=== PATIENT | female | born 1960 | race Caucasian/White ===

== ENCOUNTER 2019-02-28 22:15 | Emergency (ER) | payer OTHER ==
--- OUTSIDE RECORDS SUMMARY | 2019-02-28 22:17 | XMS REPORT | Clinical Summary ---
:1960 Author Organization [facility] Address [address] [place] [address] Care Team Providers Name Role Phone Remington Abarca Primary Care Provider Allergies No Known Allergies Medications Medication Sig Dispensed Refills Start Date End Date Status multivitamin per tablet Take 1 tablet by 0 Active mouth daily. Active Problems No known active problems Social History Tobacco Use Types Packs/Day Years Used Date Former Smoker Smokeless Tobacco: Never Used Comments: occasional smoker several years ago Alcohol Use Drinks/Week oz/Week Comments Yes once a month/social Sex Assigned at Date Recorded Not on file Job Start Date Occupation Industry Not on file Not on file Not on file Travel History Travel Start Travel End No recent travel history available. Last Filed Vital Signs Not on file Plan of Treatment Not on file Results Not on fileafter 02/27/2018 Insurance Payer Benefit Plan / Group Subscriber ID Type Phone Address [employer] - [employer] C[employer] CIG[employer] HMO/POS/OPEN ACCESS xxxxxxxxxxx HMO/POS
[2019-02-28 23:27] LABS: Urine Blood NEGATIVE (NEG); Urine Glucose NEGATIVE (NEG); Urine Protein NEGATIVE (NEG); Urine Specific Gravity 1.015 (1.005-1.030); Urine pH 8.5 (5.0-7.0)
[2019-03-01 00:07] LABS: Absolute Lymphocytes (CBC) 1.9 K/uL (0.7-4.9); Absolute Monocytes 0.7 K/uL (0.1-1.3); Absolute Neutrophil 5.6 K/uL (1.8-8.0); Basophils % 1.1 % (0-1.3); Eosinophils % 1.7 % (0-4.4); Hematocrit 37.7 % (36.0-45.0); Lymphocytes % 22.5 % (15.3-44.8); MPV 7.5 fL (7.6-11.3)
[2019-03-01 00:16] LABS: ALT/SGPT 26 U/L (12-78); AST/SGOT 26 U/L (15-37); Albumin 3.6 g/dL (3.4-5.0); Alkaline Phosphatase 78 U/L (45-117); BUN Blood Urea Nitrogen 13 mg/dL (7-18); Bicarbonate 28 mmol/L (21-32); Bilirubin Direct < 0.1 mg/dL (0-0.2); Bilirubin Total 0.3 mg/dL (0.2-1.0); Glucose Level 101 mg/dL (74-106); Lipase 130 U/L (73-393); Protein, Total 8.6 g/dL (6.4-8.2); Sodium Level 141 mmol/L (136-145)
[2019-03-01] MEDS ORDERED: NA CHLORIDE 0.9% 1,000 ML ONE (00:27)
--- NOTE | 2019-03-01 01:37 | EDPHYS ---
Physician Documentation [facility] Name: Sophia Mcfadden Age: 58 yrs Sex: Female : 1960 Arrival Date: 02/28/2019 Time: 22:16 Bed 14 Private MD: ED Physician Mert Candelaria HPI: 02/28 22:36 This 58 yrs old Female presents to ER via Ambulatory with complaints of Fever.jmm 22:36 The patient presents to the emergency department with vomiting. Onset: The jmm symptoms/episode began/occurred gradually, 2 week(s) ago. Possible causes: sick contacts, by family. The symptoms are aggravated by nothing. The symptoms are alleviated by nothing. This is a 58 year old female with no known chronic medical conditions presents to the ED with complaints of right flank pain, fatigue. Patient states 2 weeks prior vomited once. Patient vomited again Monday and was evaluated by her pcp. Patient states her cbc revealed elevated wbc count. patient prescribed cipro and flagyl. Patient states on her way home from picking her her rx, she developed increased fatigue. Patient denies shortness of breath or chest pain. . Historical: - Allergies: 22:22 No Known Allergies; ed1 - Home Meds: 22:22 None [Active]; ed1 - PMHx: 22:22 None; ed1 - PSHx: 22:22 None; ed1 - Immunization history:: Adult Immunizations up to date. - Social history:: Smoking status: Patient/guardian denies using tobacco. - Ebola Screening: : Patient negative for fever greater than or equal to 101.5 degrees Fahrenheit, and additional compatible Ebola Virus Disease symptoms Patient denies exposure to infectious person Patient denies travel to an Ebola-affected area in the 21 days before illness onset No symptoms or risks identified at this time. ROS: 22:36 Cardiovascular: Negative for chest pain, palpitations, and edema, Respiratory: Negative jmm for shortness of breath, cough, wheezing, and pleuritic chest pain. 22:36 Constitutional: Positive for body aches, fatigue. 22:36 Abdomen/GI: Positive for nausea and vomiting, Negative for diarrhea. 22:36 Back: Positive for flank pain, on the right. 22:36 All other systems are negative. Exam: 22:36 Constitutional: This is a well developed, well nourished patient who is awake, alert, jmm and in no acute distress. Head/Face: atraumatic. Eyes: EOMI, no conjunctival erythema appreciated ENT: Moist Mucus Membranes Neck: Trachea midline, Supple Chest/axilla: Normal chest wall appearance and motion. Cardiovascular: Regular rate and rhythm. No edema appreciated 22:36 Skin: General appearance color normal MS/ Extremity: Moves all extremities, no obvious deformities appreciated, no edema noted to the lower extremities Neuro: Awake and alert, normal gait Psych: Behavior is normal, Mood is normal, Patient is cooperative and pleasant 22:36 ECG was reviewed by the Attending Physician. 22:36 Respiratory: the patient does not display signs of respiratory distress, Respirations: normal, Breath sounds: are clear throughout. 22:36 Abdomen/GI: Inspection: abdomen appears normal, Bowel sounds: normal, Palpation: abdomen is soft and non-tender. 22:36 Back: CVA tenderness, that is mild, is noted on the right. 22:36 Musculoskeletal/extremity: ROM: intact in all extremities. Vital Signs: 22:22 BP 132 / 79; Pulse 83; Resp 17; Temp 97.5(O); Pulse Ox 98% on R/A; Weight 50.8 kg; ed1 Height 5 ft. 2 in. (157.48 cm); Pain 2/10; 03/01 01:03 BP 121 / 73; Pulse 70; Resp 16; Pulse Ox 100% on R/A; lp1 02:08 BP 107 / 66; Pulse 67; Resp 16; Temp 98(O); Pulse Ox 100% on R/A; Pain 0/10; lp1 02/28 22:22 Body Mass Index 20.48 (50.80 kg, 157.48 cm) ed1 MDM: 02/28 22:36 Patient medically screened. [facility] 03/01 01:35 Data reviewed: vital signs, nurses notes. Counseling: I had a detailed discussion with [facility] the patient and/or guardian regarding: the historical points, exam findings, and any diagnostic results supporting the discharge/admit diagnosis, lab results, radiology results, the need for outpatient follow up, to return to the emergency department if symptoms worsen or persist or if there are any questions or concerns that arise at home. ED course: Patient states she has been asymptomatic in the ED. VS normal. CBC unremarkable. Patient has no complaints of chest pain or shortness of breath. patient is advised to follow up with pcp and otherwise given strict return precautions. patient understood and agrees with the plan of care. . 02/28 23:17 Order name: Urine Dipstick--Ancillary (enter results); Complete Time: 23:33 02/28 23:24 Order name: Basic Metabolic Panel; Complete Time: 00:18 [facility] 02/28 23:24 Order name: CBC with Diff; Complete Time: 00:08 [facility] 02/28 23:24 Order name: Creatinine for Radiology; Complete Time: 00:18 [facility] 02/28 23:24 Order name: Hepatic Function; Complete Time: 00:18 [facility] 02/28 23:24 Order name: Lipase; Complete Time: 00:18 [facility] 02/28 23:14 Order name: Urine Dipstick-Ancillary (obtain specimen); Complete Time: 23:14 lp1 02/28 23:24 Order name: IV Saline Lock; Complete Time: 23:52 [facility] 02/28 23:24 Order name: Labs collected and sent; Complete Time: 23:52 [facility] 02/28 23:24 Order name: CT Abd/Pelvis - IV Contrast Only [facility] 03/01 01:21 Order name: EKG - Nurse/Tech; Complete Time: 01:34 [facility] 03/01 01:38 Order name: Troponin (emerg Dept Use Only); Complete Time: 02:20 jmm EC/06 22:36 Rate is 58 beats/min. Rhythm is irregular, Sinus bradycardia. QRS [place] is Normal. [place] jmm interval is normal. QRS interval is normal. QT interval is normal. No Q waves. T waves are Normal. No ST changes noted. Administered Medications: 03/01 00:12 Drug: NS 0.9% 1000 ml Route: IV; Rate: 1 bolus; Site: left antecubital; lp1 01:30 Follow up: IV Status: Completed infusion; IV Intake: 1000ml lp1 Disposition: 03/01/19 02:20 Discharged to Home. Impression: Vomiting, Malaise and fatigue. - Condition is Stable. - Discharge Instructions: Nausea and Vomiting, Adult, Fatigue. - Medication Reconciliation Form, Thank You Letter, Antibiotic Education, Prescription Opioid Use form. - Follow up: Private Physician; When: 1 - 2 days; Reason: Recheck today's complaints, Continuance of care, Re-evaluation by your physician. Addendum: 03/05/2019 16:34 Co-signature as Attending Physician, Mert Candelaria MD I agree with the assessment and t w4 plan of care. Signatures: Dispatcher [employer] EDMS Obie Matos PA PA jmm Fany Tafoya RN RN ed1 Brenda Blevins RN RN lp1 Mert Candelaria MD MD tw4 Corrections: (The following items were deleted from the chart) 03/01 01:43 01:37 03/01/2019 01:37 Discharged to Home. Impression: Malaise and fatigue; Vomiting; jmm Flank Pain. Condition is Stable. Forms are Medication Reconciliation Form, Thank You Letter, Antibiotic Education, Prescription Opioid Use. Follow up: Private Physician; When: 1 - 2 days; Reason: Recheck today's complaints, Continuance of care, Re-evaluation by your physician. [facility] 02:29 02:20 03/01/2019 02:20 Discharged to Home. Impression: Vomiting; Malaise and fatigue. lp1 Condition is Stable. Forms are Medication Reconciliation Form, Thank You Letter, Antibiotic Education, Prescription Opioid Use. Follow up: Private Physician; When: 1 - 2 days; Reason: Recheck today's complaints, Continuance of care, Re-evaluation by your physician. [facility]
--- NOTE | 2019-03-01 01:37 | ER ---
Nurse's Notes [facility] Name: Sophia Mcfadden Age: 58 yrs Sex: Female : 1960 Arrival Date: 02/28/2019 Time: 22:16 Bed 14 Private MD: Diagnosis: Vomiting;Malaise and fatigue Presentation: 02/28 22:20 Presenting complaint: Patient states: I got dehydrated last week and they called EMS. I ed1 saw my doctor and they said I have a bacterial infection and they prescribed me Cipro and Flagyl. I have not taken it yet. I was driving home from [facility] and I felt really weak so I turned around and came here. Transition of care: patient was not received from another setting of care. Onset of symptoms was February 28, 2019. Risk Assessment: Do you want to hurt yourself or someone else? Patient reports no desire to harm self or others. Initial Sepsis Screen: Does the patient meet any 2 criteria? No. Patient's initial sepsis screen is negative. Does the patient have a suspected source of infection? No. Patient's initial sepsis screen is negative. Care prior to arrival: None. 22:20 Method Of Arrival: Ambulatory ed1 22:20 Acuity: BLESSING 3 ed1 Triage Assessment: 22:22 General: Appears in no apparent distress. Behavior is calm, cooperative. Pain: ed1 Complains of pain in low back area Pain currently is 2 out of 10 on a pain scale. Cardiovascular: Denies chest pain. Respiratory: Airway is patent Respiratory effort is even, unlabored, Respiratory pattern is regular, symmetrical. Historical: - Allergies: 22:22 No Known Allergies; ed1 - Home Meds: 22:22 None [Active]; ed1 - PMHx: 22:22 None; ed1 - PSHx: 22:22 None; ed1 - Immunization history:: Adult Immunizations up to date. - Social history:: Smoking status: Patient/guardian denies using tobacco. - Ebola Screening: : Patient negative for fever greater than or equal to 101.5 degrees Fahrenheit, and additional compatible Ebola Virus Disease symptoms Patient denies exposure to infectious person Patient denies travel to an Ebola-affected area in the 21 days before illness onset No symptoms or risks identified at this time. Screenin:34 Abuse screen: Denies threats or abuse. Denies injuries from another. Nutritional lp1 screening: No deficits noted. Tuberculosis screening: No symptoms or risk factors identified. Fall Risk None identified. Assessment: 23:06 General: Appears in no apparent distress. Behavior is calm, cooperative, appropriate lp1 for age. Pain: Complains of pain in right low back. Neuro: Level of Consciousness is awake, alert, obeys commands, Oriented to person, place, time, situation, Moves all extremities. Full function Gait is steady, Pupils are PERRLA, Intact Reports dizziness. Cardiovascular: Patient's skin is warm and dry. Respiratory: Respiratory effort is even, unlabored. GI: Reports nausea, vomiting, a couple days ago. : Denies burning with urination. EENT: No signs and/or symptoms were reported regarding the EENT system. Derm: Skin is pink, warm \T\ dry. Musculoskeletal: No deficits noted. 03/01 00:00 Reassessment: Patient appears in no apparent distress at this time. No changes from lp1 previously documented assessment. 01:03 Reassessment: Patient appears in no apparent distress at this time. Patient is alert, lp1 oriented x 3, equal unlabored respirations, skin warm/dry/pink. Aware of waiting for CT results Patient denies pain at this time. 02:09 Reassessment: Patient is alert, oriented x 3, equal unlabored respirations, skin lp1 warm/dry/pink. Patient denies pain at this time. Patient states feeling better. Patient states symptoms have improved. Vital Signs: 02/28 22:22 BP 132 / 79; Pulse 83; Resp 17; Temp 97.5(O); Pulse Ox 98% on R/A; Weight 50.8 kg; ed1 Height 5 ft. 2 in. (157.48 cm); Pain 2/10; 07 01:03 BP 121 / 73; Pulse 70; Resp 16; Pulse Ox 100% on R/A; lp1 02:08 BP 107 / 66; Pulse 67; Resp 16; Temp 98(O); Pulse Ox 100% on R/A; Pain 0/10; lp1 02/28 22:22 Body Mass Index 20.48 (50.80 kg, 157.48 cm) ed1 ED Course: 02/28 22:16 Patient arrived in ED. ag3 22:22 Triage completed. ed1 22:22 Arm band placed on right wrist. ed1 22:25 Obie Matos PA is PHCP. [facility] 22:25 Mert Candelaria MD is Attending Physician. [facility] 22:33 Brenda Blevins, RN is Primary Nurse. lp1 22:43 Inserted saline lock: 22 gauge in left antecubital area, using aseptic technique. Blood mw2 collected. 23:07 Patient has correct armband on for positive identification. Placed in gown. lp1 23:51 No provider procedures requiring assistance completed. lp1 06/07 00:00 Radiology exam delayed due to lab results not completed at this time. (BUN/Creatinine). 2 00:58 CT Abd/Pelvis - IV Contrast Only In Process Unspecified. EDMS 02:29 IV discontinued, No redness/swelling at site. Pressure dressing applied. lp1 Administered Medications: 00:12 Drug: NS 0.9% 1000 ml Route: IV; Rate: 1 bolus; Site: left antecubital; lp1 01:30 Follow up: IV Status: Completed infusion; IV Intake: 1000ml lp1 Intake: 01:30 IV: 1000ml; Total: 1000ml. lp1 Outcome: 01:37 Discharge ordered by MD. [facility] 02:20 Discharge ordered by MD. [facility] 02:29 Discharged to home ambulatory, with significant other. lp1 02:29 Condition: good 02:29 Discharge instructions given to patient, Instructed on discharge instructions, follow up and referral plans. Demonstrated understanding of instructions, follow-up care. 02:29 Patient left the ED. lp1 Signatures: Dispatcher [employer] EDMS Obie Matos PA PA Fany Butler RN RN ed1 Brenda Blevins, RN RN lp1 Libra Duff 2 Myesha Garcia 2 Cyndie Taylor 3
--- NOTE | 2019-03-01 11:26 | RAD REPORT ---
EXAM DESCRIPTION: Abdomen Pelvis W Contrast CLINICAL HISTORY: Flank pain, vomiting COMPARISON: None. TECHNIQUE: CT ABDOMEN PELVIS WITH IV CONTRAST on 02/28/2019 11:24 PM CDT This exam was performed according to our departmental dose-optimization program, which includes autom ated exposure control, adjustment of the mA and/or kV according to patient size and/or use of iterati ve reconstruction technique. FINDINGS: Lower lungs are clear. Abdomen: The liver is normal in appearance. There is no biliary dilatation. Gallbladder is normal in appearance. The pancreas and spleen are normal in appearance. The adrenal glands and kidneys are unre markable. Abdominal aorta is normal in course and caliber without aneurysm. There is no free air. There is no r etroperitoneal adenopathy. Pelvis: There is large amount of stool throughout the colon. Urinary bladder is unremarkable. There i s no free fluid. The uterus is retroverted but normal in size. Appendix is normal. Skeleton: There are no acute osseous findings. No suspicious bony lesions. IMPRESSION: No acute inflammatory process. No renal or ureteral calculi. Electronically signed by: Jason French MD 03/01/2019 1:07 AM CDT Due to temporary technical issues with the PACS/Fluency reporting system, reports are being signed by the in house radiologist as a courtesy to ensure prompt reporting. The interpreting radiologist is f titily responsible for the content of the report.
--- NOTE | 2019-03-02 09:07 | EKG ---
Test Date: 2019-03-01 Test Time: 01:29:51 Radio Television Technical Director: JONA MEASUREMENT RESULTS: Intervals: Rate: 58 UT: 140 QRSD: 80 QT: 432 QTc: 424 [place]: P: 80 UT: 140 QRS: 77 T: 62 INTERPRETIVE STATEMENTS: Sinus bradycardia Otherwise normal ECG No previous ECG available for comparison Electronically Signed On 03-02-19 09:01:35 CDT by Vivek Diamond
== END 2019-03-01 02:29 | disposition home or self-care (01) ==
LOC: ER 22:15
DX: R11.10 Vomiting, unspecified (principal); R53.83 Other fatigue; R53.81 Other malaise
CPT/HCPCS: 36415; 74177; 80048; 80076; 81003; 83690; 84484; 85025; 93005; 96360; 99284; J7030; Q9967

== ENCOUNTER 2023-04-23 20:47 | Emergency (ER) | payer OTHER ==
--- OUTSIDE RECORDS SUMMARY | 2023-04-23 20:51 | XMS REPORT | Continuity of Care Document ---
:1960 Author Organization [facility] t Address [address] [place] [address] Care Team Providers Name Role Phone iMliemanuel Remington Amadeo Primary Care Physician Melita Winkler Attending Clinician Unavailable Melita Winkler Admitting Clinician Unavailable Payers Payer Name Policy Type Policy Number Effective Date Expiration Date S ource Problems This patient has no known problems. Allergies, Adverse Reactions, Alerts This patient has no known allergies or adverse reactions. Social History Social Habit Start Date Stop Date Quantity Comments Source History of Current [facility] 2017-09-06 2017-09-06 [facility] drinker of [facility] 00:[facility] 00:00:00 alcohol (finding) [facility] [place] Tobacco Comment 2017-09-01 2017-09-01 occasional sm[facility]:00 several years ago [facility] Alcohol Comment 2017-09-01 2017-09-[address] [facility] Tobacco use and 2017-09-01 2017-09-01 Smokeless tobacco [facility] exposure [facility]00[facility]00 00[facility]00[facility]00 [facility] Sex Assigned At [address] [facility]00 [facility] Smoking Status Start Date Stop Date Source Ex-smoker 2017-09-01 00:00:00 2017-09-01 00:00:00 [facility] Medications Ordered Filled Start Stop Current Ordering Indication Dosage Frequency Signature Comments Components Source Medication Medication Date Date Medication? Clinician (SIG) Name Name multivanupam 2016-09 Yes 1{tbl} QD Take [address] [facility] 2[facility] tablet 14:32: mouth [facility] 56 daily. Center Procedures This patient has no known procedures. Encounters Start End Encounter Admission Attending Care Care Encounter Source Date/Time Date/Time Type Type Clinicians Facility Department ID 2023-02-28 2023-02-28 Outpatient OLVIN Freitas [id number] [facility] 09:45:00 09:45:[address] [place] [address] Results This patient has no known results.
[2023-04-23 21:14] LABS: Absolute Lymphocytes (CBC) 2.1 K/uL (0.7-4.9); Hematocrit 36.5 % (36.0-45.0); Lymphocytes % 33.6 % (15.3-44.8); MPV 7.2 fL (7.6-11.3); RBC Red Blood Cell Count 3.76 M/uL (3.86-4.86)
[2023-04-23 21:18] LABS: Protime INR 0.99
--- NOTE | 2023-04-23 21:20 | RAD REPORT ---
EXAM DESCRIPTION: CT - Ct Stroke Brain Wo Cont - 04/23/2023 9:09 pm CLINICAL HISTORY: STROKE ALERT COMPARISON: No comparisons TECHNIQUE: All CT scans are performed using dose optimization technique as appropriate and may inclu de automated exposure control or mA/KV adjustment according to patient size. FINDINGS: No intracranial hemorrhage, hydrocephalus or extra-axial fluid collection.No areas of brai n edema or evidence of midline shift. The paranasal sinuses and mastoids are clear. The calvarium is intact. IMPRESSION: No acute intracranial abnormality. Discussed with Dr. Lamb by Dr. Browning at [id number] on 04/23/23
[2023-04-23 21:33] LABS: Albumin 3.8 g/dL (3.4-5.0); Bilirubin Direct 0.1 mg/dL (0-0.2); Bilirubin Indirect, Calculated 0.3 mg/dL (0.2-0.8); Bilirubin Total 0.4 mg/dL (0.2-1.0); Magnesium 2.1 mg/dL (1.6-2.4); Potassium 3.7 mEq/L (3.5-5.1); Protein, Total 7.6 g/dL (6.4-8.2); Troponin High Sensitivity 4.8 pg/mL (<58.9)
[2023-04-23] MEDS ORDERED: NA CHLORIDE 0.9% 500 ML ONE (21:43)
[2023-04-23] MEDS ORDERED: MECLIZINE HCL 12.5 MG TAB ONE (21:43)
--- NOTE | 2023-04-23 22:02 | RAD REPORT ---
EXAM DESCRIPTION: RAD - Chest Single View - 04/23/2023 9:49 pm CLINICAL HISTORY: CHEST PAIN COMPARISON: No comparisons FINDINGS: Lines: None. Lungs: No evidence of edema or pneumonia. Pleural: No significant pleural effusions or pneumothorax. Cardiac: The heart size is within normal limits. Mediastinum: Within normal limits. Bones: No acute fractures. Other: None IMPRESSION: No acute cardiopulmonary disease.
[2023-04-23 22:15] LABS: C-Reactive Protein < 2.90 mg/L (<3.00)
[2023-04-23] MEDS ORDERED: NA CHLORIDE 0.9% 1,000 ML ONE (23:14)
--- NOTE | 2023-04-24 00:25 | ER ---
Nurse's Notes [facility] Name: Sophia Mcfadden Age: 62 yrs Sex: Female : 1960 Arrival Date: 04/23/2023 Time: 20:47 Bed 8 Private MD: Diagnosis: Benign paroxysmal vertigo, bilateral;Dizziness and giddiness Presentation: 04/23 21:01 Chief complaint: Patient states: Around 7 pm I started having problems with my eye vc1 sight, it looked like I was looking through a kaleidoscope. I feel really lightheaded and weak. I started having tingling to my right hand and pressure to the right side of my head. I feel really jittery. Coronavirus screen: Vaccine status: Patient reports being unvaccinated. Client denies travel out of the [place] in the last 14 days. At this time, the client does not indicate any symptoms associated with coronavirus-19. Ebola Screen: Patient negative for fever greater than or equal to 101.5 degrees Fahrenheit, and additional compatible Ebola Virus Disease symptoms Patient denies exposure to infectious person. Patient denies travel to an Ebola-affected area in the 21 days before illness onset. No symptoms or risks identified at this time. No acute neurological deficit is noted. Risk Assessment: Do you want to hurt yourself or someone else? Patient reports no desire to harm self or others. Onset of symptoms was April 23, 2023 at 19:00. 21:01 Method Of Arrival: Wheelchair vc1 21:01 Acuity: BLESSING 2 vc1 Triage Assessment: 21:11 The onset of the patients symptoms was April 23, 2023 at 19:00. General: Appears in no vc1 apparent distress. uncomfortable, Behavior is cooperative, anxious. Pain: Complains of pain in right bahai Pain does not radiate. EENT: No deficits noted. No signs and/or symptoms were reported regarding the EENT system. Neuro: Level of Consciousness is awake, alert, obeys commands, Oriented to person, place, time, situation, Appropriate for age Reports weakness "Like I was looking through a kaleidoscope.". Cardiovascular: No deficits noted. Respiratory: Airway is patent Respiratory effort is even, unlabored, Respiratory pattern is regular, symmetrical. GI: No deficits noted. No signs and/or symptoms were reported involving the gastrointestinal system. : No deficits noted. No signs and/or symptoms were reported regarding the genitourinary system. Derm: No deficits noted. No signs and/or symptoms reported regarding the dermatologic system. Musculoskeletal: No deficits noted. No signs and/or symptoms reported regarding the musculoskeletal system. Stroke Activation: Physician: Stroke Attending; Name: tian; Notified At: 21:01; Arrived At: 21:01 Physician: Chief Stroke Resident; Name: ; Notified At: 21:01; Arrived At: Physician: Stroke Resident; Name: ; Notified At: 21:; Arrived At: Physician: ED Attending; Name: ; Notified At: 21:; Arrived At: Physician: ED Resident; Name: ; Notified At: 21:; Arrived At: Historical: - Allergies: 21:09 No Known Allergies; vc1 - Home Meds: 21:09 None [Active]; vc1 - PMHx: 21:09 None; vc1 - PSHx: 21:09 None; vc1 - Immunization history:: Client reports having NOT received the Covid vaccine. - Social history:: Smoking status: Patient denies any tobacco usage or history of. - Family history:: not pertinent. Screenin:15 [facility] ED Fall Risk Assessment (Adult). Abuse screen: Denies threats or abuse. vc1 Nutritional screening: No deficits noted. Tuberculosis screening: No symptoms or risk factors identified. Assessment: 21:31 Reassessment: Per Dr. Lamb, we will not be administering TNKase. cm10 21:39 VAN Scoring: Arm Drift: Patients demonstrates NO arm weakness. Patient is VAN Negative. cm10 Visual Disturbance: No visual disturbance noted. Aphasia: No aphasia noted. Neglect: No neglect noted. Jenae Swallow Protocol Brief Cognitive Screen What is your name? Normal, Where are you right now? Normal, What year is it? Normal. Oral Mechanism Examination Facial Symmetry: Normal, Motion: Normal, Lip Closure: Normal, Oral Mechanism Result: Normal. 3 oz Water Swallow Challenge: Pt able to drink all water without stopping, coughing, choking or throat clearing: Yes Result: PASS. TNKase (Tenecteplase) Screening:. General: Appears in no apparent distress. comfortable, Behavior is calm, cooperative. Pain: Complains of pain in face and right bahai. Neuro: No deficits noted. Level of Consciousness is awake, alert, obeys commands, Oriented to person, place, time, situation, Investment Fund Manager are equal bilaterally Moves all extremities. Gait is steady, Speech is normal, Facial symmetry appears normal, Pupils are PERRLA, Intact. Cardiovascular: No deficits noted. Capillary refill < 3 seconds Rhythm is regular. Respiratory: No deficits noted. Airway is patent Respiratory effort is even, unlabored, Respiratory pattern is regular, symmetrical. EENT: Reports ringing in right ear and left ear. Derm: No deficits noted. Skin is intact, Skin is pink, warm \\T\\ dry. 22:17 Reassessment: Patient and/or family updated on plan of care and expected duration. Pain cm10 level reassessed. Patient is alert, oriented x 3, equal unlabored respirations, skin warm/dry/pink. Patient states feeling better. Patient states symptoms have improved. 04/24 00:33 Reassessment: Patient states feeling better. Patient states symptoms have improved. kd3 General: Appears in no apparent distress. Behavior is calm, cooperative. Neuro: Level of Consciousness is awake, alert, obeys commands, Oriented to person, place, time, situation. Vital Signs: 04/23 21:01 Weight 51.26 kg; Height 5 ft. 2 in. ; Pain 4/10; vc1 21:19 BP 128 / 86; Pulse 86; Resp 16; Pulse Ox 100% on R/A; cm10 21:42 BP 119 / 79; Pulse 66; Resp 18; Pulse Ox 99% on R/A; kd3 22:54 BP 112 / 65; Pulse 61; Resp 19; Pulse Ox 98% on R/A; kd3 04/24 00:32 BP 103 / 72; Pulse 71; Resp 16; Pulse Ox 100% on R/A; kd3 04/23 21:01 Body Mass Index 20.67 (51.26 kg, 157.48 cm) vc1 04/23 21:01 Pain Scale: Adult vc1 [place] Coma Score: 04/23 21:36 Eye Response: spontaneous(4). Motor Response: obeys commands(6). Verbal Response: sp4 oriented(5). Total: 15. NIH Stroke Scale Scores: 21:16 NIHSS Score: 0 cm10 21:36 NIHSS Score: 0 sp4 ED Course: 20:49 Patient arrived in ED. rg4 20:55 Alice Pandey, DAYDAY is Primary Nurse. cm10 20:56 Sander Lamb MD is Attending Physician. sp4 21:00 Inserted saline lock: 20 gauge in right antecubital area, using aseptic technique. cm10 Blood collected. 21:09 Ct Stroke Brain Wo Cont In Process Unspecified. EDMS 21:09 Triage completed. vc1 21:11 Arm band placed on right wrist. vc1 21:51 XRAY Chest (1 view) In Process Unspecified. EDMS 22:17 Patient has correct armband on for positive identification. Bed in low position. Call cm10 light in reach. Side rails up X2. Provided Education on: N/A. Administered Medications: 21:44 Drug: Meclizine PO 25 mg Route: PO; cm10 22:16 Follow up: Response: No adverse reaction cm10 04/24 00:33 Follow up: Response: No adverse reaction kd3 04/23 21:44 Drug: NS 0.9% IV 500 ml Route: IV; Rate: bolus; Site: right antecubital; cm10 23:08 Follow up: Response: No adverse reaction; IV Status: Completed infusion; IV Intake: cm10 500ml 04/24 00:34 Follow up: IV Status: Completed infusion; IV Intake: 500ml kd3 04/23 23:09 Drug: NS 0.9% IV 1000 ml Route: IV; Rate: 125 ml/hr; Site: right antecubital; cm10 04/24 00:34 Follow up: IV Status: Completed infusion; IV Intake: 100ml kd3 Medication: 04/23 21:19 VIS not applicable for this client. cm10 Intake: 23:08 IV: 500ml; Total: 500ml. cm10 04/24 00:34 IV: 500ml; Total: 1000ml. kd3 00:34 IV: 100ml; Total: 1100ml. kd3 Outcome: 00:24 Discharge ordered by . sp4 00:34 Patient left the ED. kd3 NIH Stroke Scale - NIH Stroke Score Date: 04/23/2023 Time: 21:16 Total Score = 0 10. Dysarthria (speech clarity - read or repeat words) - 0(Normal) 11. Extinction and Inattention (visual/tactile/auditory/spatial/personal) - 0(No abnormality) 1a. Level of Consciousness (LOC) - 0(Alert) 1b. Level of Consciousness (LOC) (Month \\T\\ Age) - 0(Both) 1c. LOC Commands (Open \\T\\ Closes Eyes/Production Painter) - 0(Both) 2. Best Gaze (Lateral Gaze Paresis) - 0(Normal) 3. Visual Field Loss - 0(No visual loss) 4. Facial Palsy - 0(Normal) 5a. Left Arm: Motor (10-second hold) - 0(No drift) 5b. Right Arm: Motor (10-second hold) - 0(No drift) 6a. Left Leg: Motor (5-second hold - always test supine) - 0(No drift) 6b. Right Leg: Motor (5-second hold - always test supine) - 0(No drift) 7. Limb Ataxia (finger/nose \\T\\ heel/terrazas - test with eyes open) - 0(Absent) 8. Sensory Loss (pinprick arms/legs/face) - 0(Normal) 9. Best Language: Aphasia (description/naming/reading) - 0(No aphasia) Initials: cm10 NIH Stroke Scale - NIH Stroke Score Date: 04/23/2023 Time: 21:36 Total Score = 0 10. Dysarthria (speech clarity - read or repeat words) - 0(Normal) 11. Extinction and Inattention (visual/tactile/auditory/spatial/personal) - 0(No abnormality) 1a. Level of Consciousness (LOC) - 0(Alert) 1b. Level of Consciousness (LOC) (Month \\T\\ Age) - 0(Both) 1c. LOC Commands (Open \\T\\ Closes Eyes/Production Painter) - 0(Both) 2. Best Gaze (Lateral Gaze Paresis) - 0(Normal) 3. Visual Field Loss - 0(No visual loss) 4. Facial Palsy - 0(Normal) 5a. Left Arm: Motor (10-second hold) - 0(No drift) 5b. Right Arm: Motor (10-second hold) - 0(No drift) 6a. Left Leg: Motor (5-second hold - always test supine) - 0(No drift) 6b. Right Leg: Motor (5-second hold - always test supine) - 0(No drift) 7. Limb Ataxia (finger/nose \\T\\ heel/terrazas - test with eyes open) - 0(Absent) 8. Sensory Loss (pinprick arms/legs/face) - 0(Normal) 9. Best Language: Aphasia (description/naming/reading) - 0(No aphasia) Initials: sp4 Signatures: Dispatcher [employer] EDIvy Castillo rg4 Jennifer Monae RN RN kd3 Lisy Carvalho RN RN 1 Sander Lamb MD MD sp4 Alice Pandey RN RN cm10 Corrections: (The following items were deleted from the chart) 04/23 22:17 22:16 Inserted saline lock: 20 gauge in left antecubital area, using aseptic cm10 technique. Blood collected. cm10 22:17 22:09 Initial lab(s) drawn, by nh, sent to lab. First set of blood cultures cm10 drawn by me, cm10
--- NOTE | 2023-04-24 00:25 | EDPHYS ---
Physician Documentation [facility] Name: Sophia Mcfadden Age: 62 yrs Sex: Female : 1960 Arrival Date: 04/23/2023 Time: 20:47 Bed 8 Private MD: ED Physician Sander Lamb HPI: 04/23 21:36 This 62 yrs old Female presents to ER via Wheelchair with complaints of sp4 Weakness, Dizziness, Vision Problem, Numbness Of Arm. 21:36 Very pleasant 62-year-old female with no significant past medical history presents with sp4 a cute onset of dizziness at about 7:45 PM associated with some sensation of vertigo numbness and vision disturbance. . 04/24 01:49 Patient denied lateralizing weakness, denies speech deficit, denied visual field sp4 deficits. Historical: - Allergies: 04/23 21:09 No Known Allergies; vc1 - Home Meds: 21:09 None [Active]; vc1 - PMHx: 21:09 None; vc1 - PSHx: 21:09 None; vc1 - Immunization history:: Client reports having NOT received the Covid vaccine. - Social history:: Smoking status: Patient denies any tobacco usage or history of. - Family history:: not pertinent. ROS: 04/24 01:49 Constitutional: Negative for fever, chills, and weight loss, Eyes: Negative for injury, sp4 pain, redness, and discharge, positive for vision disturbance ENT: Negative for injury, pain, and discharge, Neck: Negative for injury, pain, and swelling, Cardiovascular: Negative for chest pain, palpitations, and edema, Respiratory: Negative for shortness of breath, cough, wheezing, and pleuritic chest pain, Abdomen/GI: Negative for abdominal pain, nausea, vomiting, diarrhea, and constipation, Back: Negative for injury and pain, : Negative for injury, bleeding, discharge, and swelling, MS/Extremity: Negative for injury and deformity, Skin: Negative for injury, rash, and discoloration, Neuro: Negative for headache, weakness, numbness, tingling, and seizure, positive for dizziness, positive for bilateral arm numbness, positive for vertigo Psych: Negative for depression, anxiety, Allergy/Immunology: Negative for hives, rash, and allergies Endocrine: Negative for neck swelling, polydipsia, polyuria, polyphagia, and weight changes Hematologic/Lymphatic: Negative for swollen nodes, abnormal bleeding, and unusual bruising Exam: 01:49 Constitutional: This is a well developed, well nourished patient who is awake, alert, sp4 and in no acute distress. Head/Face: Normocephalic, atraumatic. Eyes: Pupils equal round and reactive to light, extra-ocular motions intact. Lids and lashes normal. Conjunctiva and sclera are not injected. Cornea within normal limits. Periorbital areas with no swelling, redness, or edema. ENT: Nares patent. No nasal discharge, no septal abnormalities noted. Tympanic membranes are normal and external auditory canals are clear. Oropharynx with no redness, swelling, or masses, exudates, or evidence of obstruction, uvula midline. Mucous membranes moist. Neck: Trachea midline, no thyromegaly or masses palpated, and no cervical lymphadenopathy. Supple, full range of motion without nuchal rigidity, or vertebral point tenderness. Chest/axilla: Normal chest wall appearance and motion. Nontender with no deformity. No lesions are appreciated. Cardiovascular: Regular rate and rhythm with a normal S1 and S2. No gallops, murmurs, or rubs. Normal PMI, no JVD. No pulse deficits. Respiratory: Lungs have equal breath sounds bilaterally, clear to auscultation and percussion. No rales, rhonchi or wheezes noted. No increased work of breathing, no retractions or nasal flaring. Abdomen/GI: Soft, non-tender, with normal bowel sounds. No distension or tympany. No guarding or rebound. No evidence of tenderness throughout. Back: No spinal tenderness. No costovertebral tenderness. Skin: Warm, dry with normal turgor. Normal color with no rashes, no lesions, and no evidence of cellulitis. MS/ Extremity: Pulses equal, no cyanosis. Neurovascular intact. Full, normal range of motion. Neuro: Awake and alert, GCS 15, oriented to person, place, time, and situation. Cranial nerves II-XII grossly intact. Motor strength 5/5 in all extremities. Sensory grossly intact. Psych: Awake, alert, with orientation to person, place and time. Behavior, mood, and affect are within normal limits :49 ECG was reviewed by the Attending Physician. EKG time 2058. Normal sinus rhythm at sp4 rate of 71, no ST elevation or depression, no ectopy, normal intervals, normal EKG. Vital Signs: 04/23 21:01 Weight 51.26 kg; Height 5 ft. 2 in. ; Pain 4/10; vc1 21:19 BP 128 / 86; Pulse 86; Resp 16; Pulse Ox 100% on R/A; cm10 21:42 BP 119 / 79; Pulse 66; Resp 18; Pulse Ox 99% on R/A; kd3 22:54 BP 112 / 65; Pulse 61; Resp 19; Pulse Ox 98% on R/A; kd3 04/24 00:32 BP 103 / 72; Pulse 71; Resp 16; Pulse Ox 100% on R/A; kd3 04/23 21:01 Body Mass Index 20.67 (51.26 kg, 157.48 cm) vc1 04/23 21:01 Pain Scale: Adult vc1 NIH Stroke Scale Scores: 04/23 21:16 NIHSS Score: 0 cm10 21:36 NIHSS Score: 0 sp4 [place] Coma Score: 21:36 Eye Response: spontaneous(4). Motor Response: obeys commands(6). Verbal Response: sp4 oriented(5). Total: 15. MDM: 21:03 Patient medically screened. sp4 04/24 01:49 Data reviewed: nurses notes, lab test result(s), cardiac enzymes, troponin i, CBC, sp4 electrolytes, hepatic panel, EKG, radiologic studies, CT scan, plain films. Consideration of Admission/Observation Escalation of care including admission/observation considered. ED course: Patient neurologic exam does not suggest CVA or TIA. Patient's presentation is more consistent with vertigo and anxiety associated with vertigo. Exam is completely normal today and work-up is also normal. CT angio is not indicated, TNK not indicated, after period of observation patient felt completely better after some IV fluids and meclizine. Patient is stable for discharge home at this time with as needed meclizine and advised to practice bedrest for 24 hours.. 04/23 20:57 Order name: Basic Metabolic Panel; Complete Time: 00:14 sp4 04/23 20:57 Order name: CBC with Diff; Complete Time: 00:14 sp4 04/23 20:57 Order name: LFT's; Complete Time: 00:14 sp4 04/23 20:57 Order name: Magnesium; Complete Time: 00:14 sp4 04/23 20:57 Order name: NT PRO-BNP; Complete Time: 00:14 sp4 04/23 20:57 Order name: PT-INR; Complete Time: 00:14 sp4 04/23 20:57 Order name: Troponin HS; Complete Time: 00:14 sp4 04/23 21:24 Order name: Glucose, Ancillary Testing; Complete Time: 00:14 EDMS 04/23 21:36 Order name: TSH; Complete Time: 00:14 sp4 04/23 21:36 Order name: T4 Free; Complete Time: 00:14 sp4 04/23 21:36 Order name: CRP; Complete Time: 00:14 sp4 04/23 20:57 Order name: XRAY Chest (1 view); Complete Time: 00:14 sp4 04/23 21:09 Order name: Ct Stroke Brain Wo Cont; Complete Time: 00:14 EDMS 04/23 20:57 Order name: EKG; Complete Time: 20:57 sp4 04/23 20:57 Order name: Cardiac monitoring; Complete Time: 21:15 sp4 04/23 20:57 Order name: EKG - Nurse/Tech; Complete Time: 21:15 sp4 04/23 20:57 Order name: IV Saline Lock; Complete Time: 21:24 sp4 04/23 20:57 Order name: Labs collected and sent; Complete Time: 21:24 sp4 04/23 20:57 Order name: O2 Per Protocol; Complete Time: 21:24 sp4 04/23 20:57 Order name: O2 Sat Monitoring; Complete Time: 21:24 sp4 EC:49 Rate is 71 beats/min. Rhythm is regular, Normal Sinus Rhythm. QRS [place] is Normal. [place] sp4 interval is normal. QRS interval is normal. QT interval is normal. T waves are Normal. No ST changes noted. Clinical impression: Normal ECG. Interpreted by me. Administered Medications: 04/23 21:44 Drug: Meclizine PO 25 mg Route: PO; cm10 22:16 Follow up: Response: No adverse reaction cm10 04/24 00:33 Follow up: Response: No adverse reaction kd3 04/23 21:44 Drug: NS 0.9% IV 500 ml Route: IV; Rate: bolus; Site: right antecubital; cm10 23:08 Follow up: Response: No adverse reaction; IV Status: Completed infusion; IV Intake: cm10 500ml 04/24 00:34 Follow up: IV Status: Completed infusion; IV Intake: 500ml kd3 04/23 23:09 Drug: NS 0.9% IV 1000 ml Route: IV; Rate: 125 ml/hr; Site: right antecubital; cm10 04/24 00:34 Follow up: IV Status: Completed infusion; IV Intake: 100ml kd3 Disposition Summary: 04/24/23 00:24 Discharge Ordered Location: Home sp4 Problem: new sp4 Symptoms: have improved sp4 Condition: Stable sp4 Diagnosis - Benign paroxysmal vertigo, bilateral sp4 - Dizziness and giddiness sp4 Followup: sp4 - With: Private Physician - When: 7 - 10 days - Reason: Recheck today's complaints Discharge Instructions: - Discharge Summary Sheet sp4 - Benign Positional Vertigo sp4 Forms: - Patient Portal Instructions sp4 Prescriptions: - Meclizine 25 mg Oral Tablet - take 1 tablet by ORAL route every 6 hours As needed PRN vertigo; 30 tablet; sp4 Refills: 0, Product Selection Permitted NIH Stroke Scale - NIH Stroke Score Date: 04/23/2023 Time: 21:16 Total Score = 0 10. Dysarthria (speech clarity - read or repeat words) - 0(Normal) 11. Extinction and Inattention (visual/tactile/auditory/spatial/personal) - 0(No abnormality) 1a. Level of Consciousness (LOC) - 0(Alert) 1b. Level of Consciousness (LOC) (Month \T\ Age) - 0(Both) 1c. LOC Commands (Open \T\ Closes Eyes/Audioprosthologist) - 0(Both) 2. Best Gaze (Lateral Gaze Paresis) - 0(Normal) 3. Visual Field Loss - 0(No visual loss) 4. Facial Palsy - 0(Normal) 5a. Left Arm: Motor (10-second hold) - 0(No drift) 5b. Right Arm: Motor (10-second hold) - 0(No drift) 6a. Left Leg: Motor (5-second hold - always test supine) - 0(No drift) 6b. Right Leg: Motor (5-second hold - always test supine) - 0(No drift) 7. Limb Ataxia (finger/nose \T\ heel/terrazas - test with eyes open) - 0(Absent) 8. Sensory Loss (pinprick arms/legs/face) - 0(Normal) 9. Best Language: Aphasia (description/naming/reading) - 0(No aphasia) Initials: cm10 NIH Stroke Scale - NIH Stroke Score Date: 04/23/2023 Time: 21:36 Total Score = 0 10. Dysarthria (speech clarity - read or repeat words) - 0(Normal) 11. Extinction and Inattention (visual/tactile/auditory/spatial/personal) - 0(No abnormality) 1a. Level of Consciousness (LOC) - 0(Alert) 1b. Level of Consciousness (LOC) (Month \T\ Age) - 0(Both) 1c. LOC Commands (Open \T\ Closes Eyes/Audioprosthologist) - 0(Both) 2. Best Gaze (Lateral Gaze Paresis) - 0(Normal) 3. Visual Field Loss - 0(No visual loss) 4. Facial Palsy - 0(Normal) 5a. Left Arm: Motor (10-second hold) - 0(No drift) 5b. Right Arm: Motor (10-second hold) - 0(No drift) 6a. Left Leg: Motor (5-second hold - always test supine) - 0(No drift) 6b. Right Leg: Motor (5-second hold - always test supine) - 0(No drift) 7. Limb Ataxia (finger/nose \T\ heel/terrazas - test with eyes open) - 0(Absent) 8. Sensory Loss (pinprick arms/legs/face) - 0(Normal) 9. Best Language: Aphasia (description/naming/reading) - 0(No aphasia) Initials: sp4 Signatures: Dispatcher [employer] EDMS Lisy Carvalho RN RN vc1 Sander Lamb MD MD sp4 Alice Pandey RN RN cm10 Jennifer Monae RN kd3 Corrections: (The following items were deleted from the chart) 04/23 21:09 21:02 Head Brain Wo [id number] ordered. EDMS EDMS
[2023-04-24 00:59] VITALS: BP 103/72; O2SAT 100
--- NOTE | 2023-04-24 18:50 | EKG ---
Test Date: 2023-04-23 Test Time: 20:59:11 Surgery Attendant: BERNARDINO MEASUREMENT RESULTS: Intervals: Rate: 71 NH: 152 QRSD: 82 QT: 398 QTc: 432 [place]: P: 72 NH: 152 QRS: 63 T: 56 INTERPRETIVE STATEMENTS: Normal sinus rhythm Right atrial enlargement Borderline ECG Compared to ECG 03/01/2019 01:29:51 Atrial abnormality now present Sinus bradycardia no longer present Electronically Signed On 04-24-23 18:48:14 CDT by Jamison Mason
== END 2023-04-24 00:34 | disposition home or self-care (01) ==
LOC: ER 20:47
DX: H81.13 Benign paroxysmal vertigo, bilateral (principal); R53.1 Weakness
CPT/HCPCS: 96361; 93005; 85025; 80048; 36415; 83735; 85610; 82947; 80076; 84443; 84484; 84439; 83880; 86140; 70450; 71045; 96360; 99284; J8597; J7040; J7030